=== PATIENT | male | born 1950 | race Caucasian/White ===

== ENCOUNTER 2018-07-13 23:21 | Emergency (ER) | payer MEDICARE ==
[~2018-07-13] VITALS: Ht 182.9 cm; Wt 90.7 kg
[~2018-07-13 23:21] MED LIST: DILTIAZEM ER120 M1 PO; GEMFIBROZIL 60600 MG PO; LISINOPRIL-HCT1 EAC2 PO; MULTIVITAMINS PO; VITAMIN D250000 UNIT PO
[2018-07-13] MEDS ORDERED: CARDIZEM CD120 MG (23:48)
[2018-07-13] MEDS ORDERED: LISINOPRIL20 MG (23:49)
[2018-07-13] MEDS ORDERED: HYDROCHLOROTH12.5 M1 (23:49)
[2018-07-14 00:43] LABS: URINE BILIRUBIN NEGATIVE (Negative); URINE BLOOD NEGATIVE (Negative); URINE CLARITY CLEAR; URINE COLOR YELLOW; URINE GLUCOSE-RANDOM NEGATIVE (Negative); URINE KETONES NEGATIVE (Negative); URINE LEUKOCYTES-REFLEX NEGATIVE (Negative); URINE NITRITE-REFLEX NEGATIVE (Negative); URINE PROTEIN NEGATIVE (Negative); URINE SPECIFIC GRAVITY 1.015 (1.005-1.030); URINE UROBILINOGEN 0.2 E.U./dl (0.2-1.0)
[2018-07-14 01:05] LABS: HEMATOCRIT 44.9 % (42.0-52.0); HEMOGLOBIN 15.2 gm/dL (14.0-18.0); MCH 31.1 pg (26.0-34.0); MCV 91.5 fL (80.0-100.0); MPV 6.9 fl. (7.2-11.1); NUCLEATED RBCS 0 /100WBC; PLATELET COUNT* 239 thou/uL (150-400); RBC 4.91 mil/uL (4.50-6.00); RDW-CV 13.9 % (10.5-14.5); WBC 9.8 thou/uL (4.0-11.0)
[2018-07-14 01:08] LABS: ANION GAP 9 mmol/L (7-16); BUN 11 mg/dL (7-18); CALCIUM 9.2 mg/dL (8.5-10.1); CHLORIDE 100 mmol/L (98-107); CO2 30 mmol/L (21-32); CREATININE 1.1 mg/dL (0.6-1.3); GLUCOSE 115 mg/dL (70-99); POTASSIUM 3.7 mmol/L (3.5-5.1); SODIUM 139 mmol/L (136-145)
[2018-07-14 01:15] LABS: ALKALINE PHOSPHATASE 72 U/L (46-116); SGOT 25 U/L (15-37); SGPT 49 U/L (30-65); TOTAL BILIRUBIN 0.5 mg/dL (<0.1-1.0); TOTAL PROTEIN 7.8 g/dL (6.4-8.2); TROPONIN-I LEVEL <0.06 ng/mL (<0.06)
[2018-07-14] MEDS ORDERED: BENTYL 20 MG TA20 M1 PO (02:24)
[2018-07-14] MEDS ORDERED: HYDROCODON-ACE1 EAC7 PO (02:24)
[2018-07-14 02:50] LABS: ABSOLUTE LYMPHOCYTES 1.2 thou/uL (0.8-5.3); ABSOLUTE MONOCYTES 0.6 thou/uL (0.0-1.2); PLATELET ESTIMATE ADEQUATE
[2018-07-14 03:08] VITALS: BP 168/81
--- NOTE | 2018-07-15 18:00 | EKG ---
[place] [address] ELECTROCARDIOGRAM REPORT Name: KRISHNA ARELLANO V Room: [facility]#: [id number] Admission: 07/13/18 Attend Phys: Discharge: 07/14/18 Date of : 54 Report #: [id number] THIS REPORT FOR: //name// [facility] ED Test Date: 2018-07-14 Test Time: 00:31:56 Pat Name: KRISHNA ARELLANO Department: Room: Gender: M Ex Chef: GL : 1950 Requested By: Roberta Mcconnell Order Number: [id number] MD: Axel Gaytan Measurements Intervals [place] Rate: 56 P: 0 MO: 204 QRS: -8 QRSD: 96 T: 54 QT: 418 QTc: 404 Interpretive Statements Sinus rhythm Probable anteroseptal infarct, old Inferior Q waves, consider old infarct Compared to ECG 08/25/2010 08:09:05 Myocardial infarct finding now present Sinus arrhythmia no longer present Q waves no longer present Poor R-wave progression no longer present Electronically Signed On 07-15-2018 18:00:39 [employer] by Axel Gaytan [email or web address] <ELECTRONICALLY SIGNED> By: Axel Gaytan MD, FACC 07/15/18 1800 Axel Gaytan MD, FACC /EPI
== END 2018-07-14 03:10 | disposition home or self-care (01) ==
LOC: M.ERS 23:21
PROVIDERS: Personal Emergency Response Attendant
DX: R10.13 Epigastric pain (principal); R10.10 Upper abdominal pain, unspecified; K75.81 Nonalcoholic steatohepatitis (NASH); I10 Essential (primary) hypertension; G47.30 Sleep apnea, unspecified